=== PATIENT | male | born 1990 | race Caucasian/White ===

== ENCOUNTER 2021-04-08 13:24 | Emergency (ER) | payer SELFPAY ==
[2021-04-09 07:35] LABS: SARS-CoV-2 PCR by NAA Not Detected (NotDetected)
== END 2021-04-08 13:50 | disposition home or self-care (01) ==
LOC: NAV ERS 13:24
DX: Z20.822 Contact with and (suspected) exposure to COVID-19 (principal); F17.200 Nicotine dependence, unspecified, uncomplicated
CPT/HCPCS: 99283; U0003; U0005